=== PATIENT | female | born 1980 | race Caucasian/White ===

== ENCOUNTER 2019-08-12 19:46 | Emergency (ER) | payer MEDICARE, MEDICAID, SELFPAY | END 2019-08-12 20:30 | disposition home or self-care (01) | PROVIDERS: Emergency Provider Emergency Medicine; Family Provider Family Medicine; Visit Provider Emergency Medicine | DX: G44.211 Episodic tension-type headache, intractable (principal) | CPT/HCPCS: 96372; 99284; J1885 ==

== ENCOUNTER 2021-01-22 12:16 | Emergency (ER) | payer MEDICARE, MEDICAID, SELFPAY ==
[2021-01-22 12:33] VITALS: BP 115/79; PULSE 98; RESP 18; TEMP 36.8; O2SAT 95; BMI 40.0
--- NOTE | 2021-01-22 13:36 | W.ED.EXTPRO ---
HPI - Extremity Problem General: Chief complaint: Extremity Injury, Upper Stated complaint: SHARP PAINS IN RUE Time Seen by Provider: 01/22/21 13:02 Source: patient Mode of arrival: ambulatory Limitations: no limitations History of Present Illness: HPI Narrative: Patient is a 40-year-old female who presents to ED today with complaints of pain to her right elbow, forearm, and wrist. Patient tells me approximately 2 weeks ago she was lifting furniture and states the following day she began feeling pain in her right forearm. Pain is worse with usage of the extremity. She has not noticed any color or temperature changes. Denies numbness, tingling, loss of sensation. She has not noticed swelling. She has been using ibuprofen without much relief. MD Complaint: extremity pain Onset (ago): week(s) Pain Consistency: constant Location: left and upper extremity Relieving factors: immobilization Exacerbating factors: other (usage of extremity ) Associated symptoms: Reports no associated symptoms; Deny chest pain, fever(s) or rash Review of Systems Const: Denies: fever(s), chills, fatigue or malaise Card: Denies: chest pain Resp: Denies: dyspnea Musc: Reports: extremity pain (R forearm) and joint pain (R elbow/wrist); Denies: neck pain, back pain, extremity swelling, joint swelling, joint redness, joint warmth, joint stiffness, limited range of motion, muscle cramps, muscle weakness or decrease in muscle mass Skin/Breast: Denies: rash, new lesions or changes in skin color Neuro: Denies: numbness in extremities, weakness in extremities or sensory changes Physical Exam Const: COMMON NORMALS: no acute distress, patient oriented x3, no limitations and alert Extremity: COMMON NORMALS: normal to inspection, full ROM, capillary refill normal, no joint enlargement and no clubbing, cyanosis or edema GENERAL: Yes normal exam except as noted OTHER: pt maintains full ROM of R UE and strength against resistance; extremity equal color/temp when compared to left; pulses and cap refill normal; most of pain localized to medial epicondyle and into forearm Neuro: COMMON NORMALS: patient oriented x3, moves all extremities, no focal motor deficits and no sensory deficits noted SENSORIUM/ORIENTATION: Yes alert MOTOR EXAM: 5/5 motor strength present throughout Skin: COMMON NORMALS: no rashes or lesions noted GENERAL SKIN EXAM: no rashes or lesions noted TRAUMA: no lacerations or abrasions Course Vital Signs: Vital signs: Vital Signs Temperature 98.3 F 01/22/21 12:33 Pulse Rate 98 01/22/21 12:33 Respiratory Rate 18 01/22/21 12:33 Blood Pressure 115/79 01/22/21 12:33 Pulse Oximetry 95 01/22/21 12:33 MDM - Extremity (Nontraumatic) MDM Narrative: Medical decision making narrative: Will be treated for a tendonitis. There is no need for emergent imaging at this time. Discharge Plan Discharge Patient Disposition: Home Clinical Impression: Tendinitis of right forearm Condition: Stable Prescriptions: New diclofenac sodium 50 mg tablet,delayed release (DR/EC) 50 mg PO Q12H PRN (Reason: pain) Qty: 20 RF: 0 Discharge Orders: Discharge ED (Routine); Ordered 01/22/21 Ordered By: Katarzyna Adams Referrals: Yuli Arana DO [Primary Care Provider] - Patient Instructions: Tendinitis (ED) Activity Restrictions/Additional Instructions: As we discussed do not take the prescribed medication with other [id number] anti-inflammatories such as Motrin, Aleve, Ibuprofen, Advil, Naproxen. You may try an elbow tendinitis brace to help. Please follow-up with primary care in 1 to 2 weeks if pain persists. Coding Level of Care Code ED Linole[employer] Printer for Bobbi Garcia
[2021-01-22 13:54] VITALS: BP 109/87; PULSE 92; O2SAT 97
== END 2021-01-22 13:55 | disposition home or self-care (01) ==
PROVIDERS: Emergency Provider Physician Assistant; PCP Family Medicine
DX: M77.8 Other enthesopathies, not elsewhere classified (principal)
CPT/HCPCS: 99282

== ENCOUNTER 2022-07-06 06:00 | Outpatient (RCR) | payer MEDICARE, MEDICAID, SELFPAY | END 2022-07-13 23:59 | disposition home or self-care (01) | LOC: MPT 06:00 | PROVIDERS: PCP Family Medicine; Visit Provider Podiatrist | DX: M72.2 Plantar fascial fibromatosis (principal) | CPT/HCPCS: 97110; 97140; 97161 ==

== ENCOUNTER 2022-07-14 06:00 | Outpatient (RCR) | payer MEDICARE, MEDICAID, SELFPAY | END 2022-08-13 23:59 | disposition home or self-care (01) | LOC: MPT 06:00 | PROVIDERS: PCP Family Medicine; Visit Provider Podiatrist | DX: M72.2 Plantar fascial fibromatosis (principal); M77.32 Calcaneal spur, left foot | CPT/HCPCS: 97033; 97110; 97140; G0283 ==

== ENCOUNTER 2022-08-14 06:00 | Outpatient (RCR) | payer MEDICARE, MEDICAID, SELFPAY | END 2022-09-13 23:59 | disposition home or self-care (01) | LOC: MPT 06:00 | PROVIDERS: PCP Family Medicine; Visit Provider Podiatrist | DX: M72.2 Plantar fascial fibromatosis (principal) | CPT/HCPCS: 97033; 97110; 97140 ==

== ENCOUNTER 2022-09-14 06:00 | Outpatient (RCR) | payer MEDICARE, MEDICAID, SELFPAY | END 2022-10-11 23:59 | disposition home or self-care (01) | LOC: MPT 06:00 | PROVIDERS: PCP Family Medicine; Visit Provider Podiatrist | DX: M72.2 Plantar fascial fibromatosis (principal) | CPT/HCPCS: 97033; 97110; 97140; G0283 ==

== ENCOUNTER 2022-10-12 06:00 | Outpatient (RCR) | payer MEDICARE, MEDICAID, SELFPAY | END 2022-10-26 23:59 | disposition home or self-care (01) | LOC: MPT 06:00 | PROVIDERS: PCP Family Medicine; Visit Provider Podiatrist | DX: M72.2 Plantar fascial fibromatosis (principal) | CPT/HCPCS: 97140; G0283 ==

== ENCOUNTER 2024-12-22 15:34 | Emergency (ER) | payer MEDICARE, MEDICAID, SELFPAY ==
[2024-12-22 15:39] VITALS: BP 109/71; PULSE 75; TEMP 36.7; O2SAT 97; BMI 35.1
--- NOTE | 2024-12-22 15:55 | ED_ITS ---
HPI - Headache General: Chief Complaint: Headache Stated Complaint: head pain, dizziness Time Seen by Provider: 12/22/24 15:50 History of Present Illness: 44-year-old female with a history of luke ayana headaches who presents the emergency room with an intractable migraine. She says been going on for few days. [id number] medicines have not been helping. She has been feeling lightheaded at times. She has had nausea and has not been able to get much fluids down. No fevers. No altered mental status. No focal motor deficits. She does have photophobia. Reports a generalized headache. Related Data Home Medications ?Medication ?Instructions ?Recorded ?Confirmed triamcinolone acetonide 0.1 % 1 applic topical BID PRN Rash 12/22/24 12/22/24 topical cream Allergies Allergy/AdvReac Type Severity Reaction Status Date / Time No Known Allergies Allergy Verified 12/22/24 15:43 Review of Systems Narrative: Constitutional symptoms: Negative except as documented in HPI. Skin symptoms: Negative except as documented in HPI. Eye symptoms: Negative except as documented in HPI. ENMT symptoms: Negative except as documented in HPI. Respiratory symptoms: Negative except as documented in HPI. Cardiovascular symptoms: Negative except as documented in HPI. Gastrointestinal symptoms: Negative except as documented in HPI. Genitourinary symptoms: Negative except as documented in HPI. Musculoskeletal symptoms: Negative except as documented in HPI. Neurologic symptoms: Negative except as documented in HPI. Psychiatric symptoms: Negative except as documented in HPI. Endocrine symptoms: Negative except as documented in HPI. Physical Exam Narrative: EXAM NARRATIVE: General: Alert, no acute distress. Skin: Warm, dry. Head: Normocephalic, atraumatic. Neck: Supple, trachea midline. Eye: Extraocular movements are intact. Ears, nose, mouth and throat: mucosa moist. Cardiovascular: Regular, Normal peripheral perfusion. Respiratory: Lungs are clear to auscultation, respirations are non-labored, breath sounds are equal, Symmetrical chest wall expansion. Gastrointestinal: Soft, Nontender, Non distended Musculoskeletal: Normal ROM, no deformity. Neurological: Alert and oriented, No focal neurological deficit observed. Psychiatric: Cooperative, appropriate mood & affect. Course Vital Signs: Vital signs: Vital Signs Temperature 98.1 F 12/22/24 15:39 Pulse Rate 75 12/22/24 15:39 Blood Pressure 109/71 12/22/24 15:39 Pulse Oximetry 97 12/22/24 15:39 Oxygen Delivery Me thod Room Air 12/22/24 15:39 MDM - Headache Medical Decision Making Assessment and plan: Migraine headache Dehydration - 50 mg IV Benadryl - 30 mg IV Toradol - 10 mg IV Reglan - 8 mg IV Zofran - 60 mg IV Norflex - 10 mg IV Decadron - 1 L normal saline bolus - Discharged home - Discussed plan with patient. Answered any questions. - Evaluation and treatment of this problem were appropriate in the emergency setting. No radiology studies performed this visit Discharge Plan Discharge Patient Disposition: Home Clinical Impression: Migraine, Dehydration Condition: Stable Prescriptions: No Action triamcinolone acetonide 0.1 % cream 1 applic TOPICAL BID PRN (Reason: Rash) Discharge Orders: Discharge ED (Routine); Ordered 12/22/24 Ordered By: Tanisha Jacobs Referrals: Loco Darling MD [Physician, Neurology] - 7-10 days Referral Note: Please call for an appointment with neurology or with your primary care provider for evaluation for prescription treatment of migraine headaches. Yuli Arana DO [Primary Care Provider, Family Practice] Discharge Diet: Usual diet Discharge Activity: Increase activity as tolerated Patient Instructions: Opioid Safety, Pain Management Activity Restrictions/Additional Instructions: Thank you for choosing [facility] for your healthcare needs today. You have been screened and evaluated and felt safe for discharge. Health conditions do change or evolve sometimes and as such it is important that you follow up with your Primary Doctor to be re checked, 3-5 days is a general good time frame for follow up. You are always welcome to return to the ED for re assessment if your symptoms are worsening or you have new concerns Print Language: Icelandic Coding Level of Care Code ED Gasket Inspector for Bobbi Garcia
[2024-12-22 16:00] VITALS: BP 109/64; PULSE 77; RESP 18; O2SAT 96
[2024-12-22] MEDS: sodium chloride 0.9% 1,000 ML 999 ML IV (16:08)
[2024-12-22] MEDS: ondansetron 2 mg/ML SDV 2 mL 8 MG IVP (16:09)
[2024-12-22] MEDS: diphenhydrAMINE 50 mg/mL SDV 1mL IVP (16:11)
[2024-12-22] MEDS: dexamethasone 10 mg/mL INJ IVP (16:13)
[2024-12-22] MEDS: orphenadrine 30 mg/mL Inj 2 mL 60 MG IVP (16:15)
[2024-12-22] MEDS: ketorolac 30 mg/mL INJ IVP (17:03)
[2024-12-22] MEDS: metoclopramide 5 mg/mL SDV 2 mL 10 MG IVP (17:03)
[2024-12-22 18:18] VITALS: BP 105/69; PULSE 77; O2SAT 95
== END 2024-12-22 18:19 | disposition home or self-care (01) ==
PROVIDERS: Emergency Provider Emergency Medicine; PCP Family Medicine
DX: G43.909 Migraine, unspecified, not intractable, without status migrainosus (principal); E86.0 Dehydration
CPT/HCPCS: 96361; 96374; 96375; 99284; J1100; J1200; J1885; J2360; J2405; J2765; J7030

== ENCOUNTER → 2025-01-03 15:07 | Outpatient (BNVA) | payer MEDICARE, MEDICAID, SELFPAY | PROVIDERS: PCP Family Medicine; Visit Provider Nurse Practitioner | DX: R10.9 Unspecified abdominal pain (principal); R80.9 Proteinuria, unspecified | CPT/HCPCS: 81000; 87086 ==

== ENCOUNTER → 2025-01-31 13:02 | Outpatient (BNVA) | payer MEDICARE, MEDICAID, SELFPAY | PROVIDERS: PCP Family Medicine; Visit Provider Nurse Practitioner | DX: M25.552 Pain in left hip (principal); Z96.643 Presence of artificial hip joint, bilateral | CPT/HCPCS: 73502 ==

== ENCOUNTER → 2025-03-11 15:09 | Outpatient (BNVA) | payer MEDICARE, MEDICAID, SELFPAY | PROVIDERS: Visit Provider Family Medicine | DX: Z13.1 Encounter for screening for diabetes mellitus (principal); Z13.220 Encounter for screening for lipoid disorders; Z13.6 Encounter for screening for cardiovascular disorders; G43.909 Migraine, unspecified, not intractable, without status migrainosus | CPT/HCPCS: 80053; 80061; 85025 ==